=== PATIENT | male | born 1950 | race Caucasian/White ===

== ENCOUNTER 2016-09-20 05:43 | Inpatient (IN) | payer BC, OTHER ==
[2016-09-04 14:03] LABS: % IMMATURE GRANULYOCYTES 0.4 % (0.0-1.1); ABSOLUTE IMMATURE GRANULOCYTES 0.04 10^3/uL (0.00-0.10); ADD DIFF? NO; ADD MORPH? NO; ADD SCAN? NO; ATYPICAL LYMPHOCYTE FLAG 10 (0-99); FRAGMENT RBC FLAG 0 (0-99); HEMATOCRIT 42.4 % (40.0-51.0); HEMOGLOBIN 15.2 g/dL (13.7-17.5); LEFT SHIFT FLG 0 (0-99); LIPEMIA HEMOLYSIS FLAG 90 (0-99); MEAN CELL HEMOGLOBIN 33.7 pg (27.9-34.1); MEAN CELL HEMOGLOBIN CONCENTR. 35.8 g/dL (32.4-36.7); MEAN PLATELET VOLUME 9.9 fL (8.7-11.7); PLATELET CLUMPS FLAG 0 (0-99); PLATELET COUNT 287 10^3/uL (150-400); RED BLOOD CELL COUNT 4.51 10^6/uL (4.40-6.38); RED CELL DISTRIBUTION WIDTH 12.3 % (11.5-15.2)
[2016-09-04 14:26] LABS: ANION GAP 12 mEq/L (8-16); CALCIUM 9.3 mg/dL (8.5-10.4); CARBON DIOXIDE 25 mEq/l (22-31); CHLORIDE 106 mEq/L (97-110); CREATININE 1.2 mg/dL (0.7-1.3); GLOMERULAR FILTRATION RATE > 60; GLUCOSE 104 mg/dL (70-100); POTASSIUM 3.8 mEq/L (3.5-5.2); SODIUM 143 mEq/L (134-144)
[2016-09-20] MEDS ORDERED: LR 1,000 ML IV ONE (06:18)
[2016-09-20] MEDS ORDERED: LIDOCAINE 1% 5 ML SDV ID PRN (06:18)
[2016-09-20] MEDS ORDERED: ceFAZolin 2 GM/DEXTROSE 100 ML IV ONE (06:30)
[2016-09-20] MEDS ORDERED: BUPIVACAINE/EPI 0.25% 30 ML SDV ONE (06:40)
[2016-09-20] MEDS ORDERED: THROMBIN (RECOMBINANT) 20,000 UNIT VIAL TP ONE (06:40)
[2016-09-20] MEDS ORDERED: BACITRACIN 50,000 UNITS/10 ML SYR IRR ONE (06:40)
[2016-09-20] MEDS ORDERED: ONDANSETRON 4 MG/2 ML VIAL IVP PRN (06:56)
[2016-09-20] MEDS ORDERED: DIAZEPAM 10 MG/2 ML SYR IVP PRN (06:56)
[2016-09-20] MEDS ORDERED: [UNRECOGNIZED DRUG - OTHER] TP PRN (06:56)
[2016-09-20] MEDS ORDERED: HYDROmorphONE/DILAUDID 6 MG/30 ML PCA IV PRN (06:56)
[2016-09-20] MEDS ORDERED: LACTULOSE 20 GM/30 ML UDCUP PO PRN (06:56)
[2016-09-20] MEDS ORDERED: MAGNESIUM HYDROXIDE 30 ML UDCUP PO PRN (06:56)
[2016-09-20] MEDS ORDERED: TEMAZEPAM 15 MG CAP PO PRN (06:56)
[2016-09-20] MEDS ORDERED: HYDROmorphONE/DILAUDID 1 MG/ML SYR IVP PRN (06:56)
[2016-09-20] MEDS ORDERED: diphenhydrAMINE 25 MG CAP PO PRN (06:56)
[2016-09-20] MEDS ORDERED: NALOXONE HCL 0.4 MG/ML INJ IVP PRN (06:56)
[2016-09-20] MEDS ORDERED: BISACODYL 10 MG SUPP PR PRN (06:56)
[2016-09-20] MEDS ORDERED: CEFUROXIME 1,500 MG in NS 50 ML IV ONE (07:00)
[2016-09-20] MEDS ORDERED: MIDAZOLAM 2 MG/2 ML VIAL ONE (07:22)
[2016-09-20] MEDS ORDERED: REMIFENTANIL HCL 1 MG VIAL ONE ×2 (07:28→09:45)
[2016-09-20] MEDS ORDERED: fentaNYL 100 MCG/2 ML INJ ONE ×3 (07:29→13:13)
[2016-09-20] MEDS ORDERED: ONDANSETRON 4 MG/2 ML VIAL ONE ×2 (07:29→13:24)
[2016-09-20] MEDS ORDERED: LIDOCAINE 2% 100 MG/5 ML SYR IVP ONE (07:29)
[2016-09-20] MEDS ORDERED: DEXAMETHASONE 4 MG/ML VIAL ONE ×2 (07:29)
[2016-09-20] MEDS ORDERED: LIDOCAINE HCL 160 MG/4 ML LTA KIT TP ONE (07:29)
[2016-09-20] MEDS ORDERED: PROPOFOL/EMULSION 500 MG/50 ML BOTTLE IV ONE ×2 (07:29→09:45)
[2016-09-20] MEDS ORDERED: FAMOTIDINE 20 MG/NACL 50 ML IV SCH (09:00)
[2016-09-20] MEDS ORDERED: PHENYLEPHRINE HCL 100 MCG/ML SYR ONE (10:13)
[2016-09-20] MEDS ORDERED: epHEDrine SULFATE 10 MG/ML SYR ONE (10:13)
[2016-09-20] MEDS ORDERED: morphINE *ANESTHESIA ONLY* 10 MG/ML VIAL ONE (11:45)
[2016-09-20] MEDS ORDERED: DIAZEPAM 10 MG/2 ML SYR ONE (12:40)
[2016-09-20] MEDS ORDERED: HYDROmorphONE/DILAUDID 1 MG/ML SYR ONE (13:24)
--- NOTE | 2016-09-20 13:33 | SOAPPROG ---
[facility] Progress Note Assessment/Plan: Post Op Visit: S: Awake and alert, Pt with expected lower back pain O: AFVSS/PERRLA/EOMI CN 2-12 grossly intact +lt touch 5/5 BUE/BLE = CDI MONIKA in place A/P: 66 yo male that is s/p TLIF at L4/5 and L5/S1 -orders in place -call with any questions or concerns -take medications as directed -pt seen by Dr Caba as well 09/20/16 13:31 Objective: Laboratory Results 09/04/16 13:49 09/04/16 13:49 ICD10 Worksheet Patient Problems: Problems Problem Status Diagnosed Arthrodesis status Acute Lumbar radicular pain Acute Lumbar stenosis Acute - ICD10 Problem Qualifiers (1) Lumbar stenosis (2) Lumbar radicular pain (3) Arthrodesis status
--- NOTE | 2016-09-20 13:45 | GOP ---
[f rep st] OPERATIVE REPORT DATE OF OPERATION: 09/20/2016 SURGEON: Tiffanie Caba MD SUPERVISOR ELECTRIC: Parmjit Francisco PA-C PREOPERATIVE DIAGNOSIS: Lumbar spondylolisthesis L5-S1, lumbar spondylosis, lumbar degenerative disk disease, chronic right lumbosacral radiculopathy, right lateral recess stenosis L4-5, severe right f oraminal stenosis L5-S1. POSTOPERATIVE DIAGNOSIS: Lumbar spondylolisthesis L5-S1, lumbar spondylosis, lumbar degenerative dis k disease, chronic right lumbosacral radiculopathy, right lateral recess stenosis L4-5, severe right foraminal stenosis L5-S1. PROCEDURE PERFORMED: Right L4-5, L5-S1 hemilaminectomy with complete facetectomy and decompression o f the exiting L4 nerve roots and L5 nerve root L4-5, L5-S1, with a posterolateral and an intervertebr al arthrodesis at those levels (60636, [id number]), posterior segmental instrumentation L4, L5, S1 (04262) , same incision bone graft harvest, microscope, intraoperative frameless Stealth stereotaxy for spine , placement of expandable biomechanical intervertebral device at L4-5, L5-S1 without anchors (63015 x 2). FINDINGS: ESTIMATED BLOOD LOSS: 300 cc. INDICATIONS: The patient is a 66-year-old with a prior history of cervical surgery who had terrible right lumbosacral radiculopathy due principally to right foraminal stenosis at L5-S1, where there is a degenerative slip of L5-S1 and hypertrophy of the facet joint and the SAP of the sacrum, causing co mpression of the right L5 root. There is also right lateral recess stenosis at L4-5, and I suggested a 2-level instrumented fusion to decompress the right foramen. The risk of screw and hardware malpo sition, malfunction, nerve injury, spinal fluid leak, continued symptoms was discussed. He knew surg anushka may fail to alleviate the discomfort in his leg, but this gave him the best chance of relief. He accepted these risks. He did want to proceed. DESCRIPTION OF PROCEDURE: The patient was taken to the operating room, placed in supine position. G eneral anesthesia was begun. He was flipped prone onto the James table. Care was taken to pad all points of contact. His back was sterilely prepped and draped in the usual fashion. A localizing x- ray was taken. We made a 7 cm incision above the L4-5, L5-S1 interspaces. The subcutaneous tissue w as dissected using Bovie cautery down through the fascia, and a subperiosteal dissection was made alvin n the lamina of L4-5 and the sacrum. We removed the hypertrophic facets bilaterally at L4-5, L5-S1, placed a self-retaining retractor, and removed all the soft tissue of the bone L4-5, L5-S1. We decor ticated the transverse processes at L4, L5, S1. We tested Stealth reference, framing the L5 spinous process, performed an O-arm spin, and using frameless Stealth stereotaxy, we placed pedicle screws bi laterally at L4-5 in the sacrum. They were all in good position, and they all stimulated at acceptab le levels. We then took 60 mm rods, kept them with the preset lordosis, and put them down over the t ulips from L4 to S1. We distracted between L4, L5, S1. The rods were the right length. We final ti ghtened the cap screws according to company specification. There was good lumbar lordosis. We harve sted the L5 spinous process for autologous grafting purposes and the right hemilamina of L4 and the h emilamina of L5 for autologous grafting purposes. Under the microscope, we decompressed the right si de of the thecal sac at L4-5, L5-S1, and there was a large bony hypertrophy of the SEP of the sacrum compressing the L5 root in the neural foramen underneath the L5 pedicle. We completely removed this large piece of bone that was sitting against the L5 root, and nicely decompressed it. The L5 root wa s now decompressed at the L4-5 level, where there was lateral recess stenosis and all way down out in to its neural foramen. We decompressed the right S1 nerve root. We then incised the L5-S1 disk, rem tawanda the disk and the cartilaginous endplates. We incised the L4-5 disk, removed the disk, and the c artilaginous endplates. We then roughened the subchondral bone at L4-5, L5-S1 to create arthrodesis at those levels, and chose a 7 x 20 mm device for L5-S1 and a 9 x 20 mm device for L4-5. We inserted them under fluoroscopic guidance and expanded them according to company specification. Bony autogra ft and BMP had been placed in the interspace at both levels. We expanded them and x-rays demonstrate d good position of all the devices. We final tightened all the cap screws according to company speci fication, decorticated all the remaining posterolateral bone at L4-5, L5-S1, placed a subfascial drai n, and closed the incision in multiple layers using Vicryl sutures. A running PDS was placed in the skin itself. The patient was reversed from anesthesia, extubated, and transferred to recovery room i n stable condition. There were no complications. COMPLICATIONS: None. INSTRUMENTATION USED: [email or web address]tronic 4.75 Solera pedicle screws with Elevate cages. COMPLICATIONS: None. /[id number]/MODL
[2016-09-20] MEDS: NS W/ 20 KCl/L 1,000 ML IV SCH (14:44)
[2016-09-20] MEDS: amLODIPine BESYLATE 5 MG TAB PO SCH (15:33)
[2016-09-20] MEDS: LISINOPRIL 40 MG TAB PO SCH (15:33)
[2016-09-20] MEDS: HYDROCHLOROTHIAZIDE 25 MG TAB PO SCH (15:33)
[2016-09-20] MEDS: SENNOSIDES/DOCUSATE SODIUM TAB PO SCH ×2 (15:37→19:49)
[2016-09-20] MEDS: morphINE SR 15 MG TAB PO SCH ×2 (15:57→19:49)
[2016-09-20] MEDS: oxyCODONE IR 5 MG TAB PO PRN (16:58)
[2016-09-20] MEDS: METHOCARBAMOL 750 MG TAB PO PRN (16:58)
[2016-09-20] MEDS: DIAZEPAM 5 MG TAB PO PRN ×2 (16:58→23:58)
[2016-09-20] MEDS: ONDANSETRON DISINTEGRATING 4 MG TAB PO PRN ×2 (17:09→21:27)
--- NOTE | 2016-09-20 18:11 | DX ---
Intraoperative Fluoroscopy History: Lumbar fusion surgery Fluoroscopy dose = 10.89 mGy Findings : A single lateral spot film demonstrates a posterior fusion construct between L4 and S1. Al ignment is anatomic. There is a vacuum phenomenon in the severely narrowed L5-S1 disk space Impression: Excellent intraoperative alignment.
[2016-09-20] MEDS: FAMOTIDINE 20 MG TAB PO SCH (19:49)
[2016-09-21] MEDS: oxyCODONE IR 5 MG TAB PO PRN ×3 (04:36→11:37)
[2016-09-21] MEDS: ONDANSETRON DISINTEGRATING 4 MG TAB PO PRN ×4 (04:36→20:37)
[2016-09-21] MEDS: METHOCARBAMOL 750 MG TAB PO PRN ×2 (04:36→11:37)
[2016-09-21] MEDS: NS W/ 20 KCl/L 1,000 ML IV SCH (04:40)
[2016-09-21 05:00] LABS: % IMMATURE GRANULYOCYTES 0.5 % (0.0-1.1); ABSOLUTE IMMATURE GRANULOCYTES 0.07 10^3/uL (0.00-0.10); ADD DIFF? NO; ADD MORPH? NO; ADD SCAN? NO; ATYPICAL LYMPHOCYTE FLAG 10 (0-99); FRAGMENT RBC FLAG 0 (0-99); HEMATOCRIT 34.4 % (40.0-51.0); HEMOGLOBIN 11.7 g/dL (13.7-17.5); LEFT SHIFT FLG 0 (0-99); LIPEMIA HEMOLYSIS FLAG 90 (0-99); MEAN CELL HEMOGLOBIN 32.7 pg (27.9-34.1); MEAN CELL VOLUME 96.1 fL (81.5-99.8); PLATELET CLUMPS FLAG 0 (0-99); PLATELET COUNT 200 10^3/uL (150-400); RED BLOOD CELL COUNT 3.58 10^6/uL (4.40-6.38); RED CELL DISTRIBUTION WIDTH 12.2 % (11.5-15.2)
[2016-09-21 05:24] LABS: ANION GAP 9 mEq/L (8-16); CALCIUM 8.9 mg/dL (8.5-10.4); CARBON DIOXIDE 24 mEq/l (22-31); CHLORIDE 106 mEq/L (97-110); CREATININE 1.1 mg/dL (0.7-1.3); GLOMERULAR FILTRATION RATE > 60; GLUCOSE 127 mg/dL (70-100); POTASSIUM 4.6 mEq/L (3.5-5.2); SODIUM 139 mEq/L (134-144)
--- NOTE | 2016-09-21 07:36 | NEUSURGPN ---
[id number] pain improved. Has some arm numbness that is resolving from positioning during surgery. Denies fever, chills. O: AFVSS/PERRLA/EOMI CN 2-12 grossly intact +lt touch 5/5 BUE/BLE = CDI MONIKA in place A/P: 66 yo male that is s/p TLIF at L4/5 and L5/S1 -orders in place -call with any questions or concerns -take medications as directed -pt seen by Dr Caba as well Neurosurgery Physical Exam - Vitals, I&O, Labs I and O 09/20/16 09/21/16 09/22/16 05:59 05:59 05:59 Intake Total 3830 Output Total 1240 250 Balance 2590 -250 Weight 89 kg Intake: Oral (ml) 1000 IV Intake (ml) 1880 IV Infused (ml) 950 ceFAZolin 1 GM/DEXTROSE 50 50 ml @ 200 mls/hr IV Q8H [facility] Rx#:[id number] NS W/ 20 KCl/L 1,000 ml @ 900 75 mls/hr IV CONT [facility] Rx #:[id number] Output: Urine (ml) 775 250 Urinal 775 250 Wound Drainage (ml) 465 #1 Back 465 Other: Number of Voids Urinal 1 1 Bladder Scan Volume (ml) Urinal 309 Vital Signs Temp Pulse Resp BP Pulse Ox 36.9 C 79 16 107/71 98 09/21/16 04:00 09/21/16 04:00 09/21/16 04:00 09/21/16 04:00 09/21/16 04:00 Laboratory Results 09/21/16 04:31 09/21/16 04:31 ICD10 Worksheet Patient Problems: Problems Problem Status Diagnosed Arthrodesis status Acute Lumbar radicular pain Acute Lumbar stenosis Acute
[2016-09-21] MEDS: POLYETHYLENE GLYCOL 3350 17 GM PKT PO PRN (08:34)
[2016-09-21] MEDS: morphINE SR 15 MG TAB PO SCH ×2 (08:35→20:37)
[2016-09-21] MEDS: FAMOTIDINE 20 MG TAB PO SCH ×2 (08:35→20:35)
[2016-09-21] MEDS: SENNOSIDES/DOCUSATE SODIUM TAB PO SCH ×2 (08:36→20:35)
[2016-09-21] MEDS: amLODIPine BESYLATE 5 MG TAB PO SCH (08:36)
[2016-09-21] MEDS: LISINOPRIL 40 MG TAB PO SCH (08:36)
[2016-09-21] MEDS: HYDROCHLOROTHIAZIDE 25 MG TAB PO SCH (08:36)
--- NOTE | 2016-09-21 11:18 | DX ---
Lumbar Spine, 2 standing views History: Postop fusion followup Comparison: None Findings: A posterior fusion construct between L4 and S1 is present with bilateral transpedicular scr ews, vertical supporting rods and interbody disk space elevate spacers being in excellent position. . There is been a right laminotomy and facetectomy of L4 and a wide laminectomy at L5. A surgical drai n is present posteriorly. Alignment is anatomic. Impression: Excellent anatomic postoperative alignment.
[2016-09-21] MEDS: DIAZEPAM 5 MG TAB PO PRN (20:35)
[2016-09-21] MEDS: ACETAMINOPHEN 325 MG TAB PO PRN (20:35)
[2016-09-21] MEDS: ZOLPIDEM TARTRATE 5 MG TAB PO PRN (20:37)
[2016-09-22] MEDS: oxyCODONE IR 5 MG TAB PO PRN ×4 (03:47→23:19)
[2016-09-22] MEDS: METHOCARBAMOL 750 MG TAB PO PRN (03:49)
[2016-09-22] MEDS: PROMETHAZINE HCL 25 MG/ML INJ IVP PRN ×2 (03:49→10:26)
--- NOTE | 2016-09-22 07:24 | NEUSURGPN ---
Date of Surgery: 09/20/16 Post Op Day: 2 Assessment/Plan: Assessment: 66 yo male that is s/p TLIF at L4/5 and L5/S1 POD #2 Plan: -s/p TLIF L4/5 and L5/S1: pt states legs are much better, still has expected lower back pain -pain control: still working on pain control -no abd pain or BM. Passing gas -brace when out of bed -post op xrays look good -plan for dc tomorrow -warning signs given -call with any questions or concerns -take medications as directed -pt seen by Dr Caba as well 09/20/16 13:31 Subjective: Awake and alert. NAD. Eating/drinking and voiding. No f/c/n/v/d. Pt with continued expected back pain. Objective: AFVSS/PERRLA/EOMI CN 2-12 grossly intact +lt touch 5/5 BUE/BLE = CDI MONIKA removed intact Neuro Check Frequency: per routine Urinary Catheter in Place: No - Physician Discussed Patient with Dr.: Rosales Patient Seen by : Rosales Neurosurgery Physical Exam - Vitals, I&O, Labs I and O 09/21/16 09/22/16 09/23/16 05:59 05:59 05:59 Intake Total 3830 1250 Output Total 1240 1780 Balance 2590 -530 Weight 89 kg Intake: Oral (ml) 1000 1250 IV Intake (ml) 1880 IV Infused (ml) 950 ceFAZolin 1 GM/DEXTROSE 50 50 ml @ 200 mls/hr IV Q8H [facility] Rx#:[id number] NS W/ 20 KCl/L 1,000 ml @ 900 75 mls/hr IV CONT [facility] Rx #:[id number] Output: Urine (ml) 775 1600 Urinal 775 1600 Wound Drainage (ml) 465 180 #1 Back 465 180 Other: Number of Voids Urinal 1 1 Bladder Scan Volume (ml) Urinal 309 Vital Signs Temp Pulse Resp BP Pulse Ox 37.3 C 80 19 99/63 L 93 09/21/16 23:55 09/21/16 23:55 09/21/16 23:55 09/21/16 23:55 09/21/16 23:55 Laboratory Results 09/21/16 04:31 09/21/16 04:31 ICD10 Worksheet Patient Problems: Problems Problem Status Diagnosed Arthrodesis status Acute Lumbar radicular pain Acute Lumbar stenosis Acute - ICD10 Problem Qualifiers (1) Lumbar stenosis (2) Lumbar radicular pain (3) Arthrodesis status
[2016-09-22] MEDS: ACETAMINOPHEN 325 MG TAB PO PRN ×2 (10:07→18:52)
[2016-09-22] MEDS: LISINOPRIL 40 MG TAB PO SCH (10:08)
[2016-09-22] MEDS: SENNOSIDES/DOCUSATE SODIUM TAB PO SCH ×2 (10:08→20:50)
[2016-09-22] MEDS: HYDROCHLOROTHIAZIDE 25 MG TAB PO SCH (10:08)
[2016-09-22] MEDS: FAMOTIDINE 20 MG TAB PO SCH ×2 (10:09→20:48)
[2016-09-22] MEDS: amLODIPine BESYLATE 5 MG TAB PO SCH (10:09)
[2016-09-22] MEDS: morphINE SR 15 MG TAB PO SCH ×2 (10:09→20:49)
[2016-09-22] MEDS: ZOLPIDEM TARTRATE 5 MG TAB PO PRN (20:50)
[2016-09-23] MEDS: oxyCODONE IR 5 MG TAB PO PRN ×4 (05:40→22:20)
--- NOTE | 2016-09-23 09:50 | DX ---
Portable Chest, 9:34 AM History: Fever cough, sweats Comparison: None Findings: Inspiratory phase is less than optimal. There is some vascular crowding at the left base. T here is no obvious infiltrate or consolidation. The costophrenic gutters are sharp. There is mild tor tuosity of the descending thoracic aorta. There is degenerative spurring in the lower thoracic spine. Orthopedic hardware overlies the low cervical spine where the patient has had a fusion surgery. Impression: Less than optimal inspiration. Possibly early atelectasis at the left base.
[2016-09-23] MEDS: SENNOSIDES/DOCUSATE SODIUM TAB PO SCH ×2 (10:10→19:37)
[2016-09-23] MEDS: LISINOPRIL 40 MG TAB PO SCH (10:10)
[2016-09-23] MEDS: ACETAMINOPHEN 325 MG TAB PO PRN (10:10)
[2016-09-23] MEDS: HYDROCHLOROTHIAZIDE 25 MG TAB PO SCH (10:11)
[2016-09-23] MEDS: morphINE SR 15 MG TAB PO SCH ×2 (10:11→19:38)
[2016-09-23] MEDS: FAMOTIDINE 20 MG TAB PO SCH ×2 (10:11→19:38)
[2016-09-23] MEDS: amLODIPine BESYLATE 5 MG TAB PO SCH (10:11)
[2016-09-23] MEDS: ENOXAPARIN 40 MG/0.4 ML SYR SC SCH (10:13)
[2016-09-23 10:17] LABS: % IMMATURE GRANULYOCYTES 0.4 % (0.0-1.1); ABSOLUTE IMMATURE GRANULOCYTES 0.06 10^3/uL (0.00-0.10); ADD DIFF? NO; ADD MORPH? NO; ADD SCAN? NO; ATYPICAL LYMPHOCYTE FLAG 20 (0-99); FRAGMENT RBC FLAG 0 (0-99); HEMATOCRIT 40.2 % (40.0-51.0); HEMOGLOBIN 13.6 g/dL (13.7-17.5); LEFT SHIFT FLG 0 (0-99); LIPEMIA HEMOLYSIS FLAG 90 (0-99); MEAN CELL HEMOGLOBIN 32.1 pg (27.9-34.1); MEAN CELL HEMOGLOBIN CONCENTR. 33.8 g/dL (32.4-36.7); MEAN CELL VOLUME 94.8 fL (81.5-99.8); MEAN PLATELET VOLUME 9.7 fL (8.7-11.7); PLATELET CLUMPS FLAG 0 (0-99); PLATELET COUNT 243 10^3/uL (150-400); RED BLOOD CELL COUNT 4.24 10^6/uL (4.40-6.38); RED CELL DISTRIBUTION WIDTH 11.9 % (11.5-15.2)
[2016-09-23] MEDS: POLYETHYLENE GLYCOL 3350 17 GM PKT PO PRN (10:45)
--- NOTE | 2016-09-23 10:45 | NEUSURGPN ---
Date of Surgery: 09/20/16 Post Op Day: 3 Assessment/Plan: 66 yo male s/p L4-S1 TLIF. Pain controlled and preop right leg paresthesias improving low grade temp and new cough started last night lungs clear per RN I.S. Started WBC 14.2 UA and CXR pending Subjective: sitting up on edge of bed, notes right thigh paresthesias improved Objective: Neuro: ambulatory HUNTLEY, sens +LT Incision:CDI, no drainage or redness or swelling Urinary Catheter in Place: No Neurosurgery Physical Exam - Vitals, I&O, Labs I and O 09/22/16 09/23/16 09/24/16 05:59 05:59 05:59 Intake Total 1250 150 Output Total 1780 Balance -530 150 Intake: Oral (ml) 1250 150 Output: Urine (ml) 1600 Urinal 1600 Wound Drainage (ml) 180 #1 Back 180 Other: Number of Voids Urinal 1 Vital Signs Temp Pulse Resp BP Pulse Ox 37.8 C 94 18 110/71 96 09/23/16 07:56 09/23/16 07:56 09/23/16 07:56 09/23/16 10:11 09/23/16 07:56 Laboratory Results 09/23/16 10:00 09/21/16 04:31 ICD10 Worksheet Patient Problems: Problems Problem Status Diagnosed Arthrodesis status Acute Lumbar radicular pain Acute Lumbar stenosis Acute
[2016-09-23] MEDS: POLYETHYLENE GLYCOL 3350 17 GM PKT PO SCH ×2 (15:08→19:39)
[2016-09-23 17:09] LABS: COLOR YELLOW; LEUKOCYTE ESTERASE,URINE NEGATIVE (NEGATIVE); NITRITE,URINE NEGATIVE (NEGATIVE)
[2016-09-23 19:36] VITALS: RESP 16
[2016-09-23] MEDS: DIAZEPAM 5 MG TAB PO PRN (19:38)
[2016-09-23] MEDS: ZOLPIDEM TARTRATE 5 MG TAB PO PRN (21:20)
[2016-09-23] MEDS: METHOCARBAMOL 750 MG TAB PO PRN (22:20)
[2016-09-24] MEDS: oxyCODONE IR 5 MG TAB PO PRN ×2 (06:49→14:12)
[2016-09-24] MEDS: ACETAMINOPHEN 325 MG TAB PO PRN ×2 (08:07→11:33)
[2016-09-24 08:21] VITALS: BP 109/74; PULSE 102; O2SAT 92
[2016-09-24] MEDS: amLODIPine BESYLATE 5 MG TAB PO SCH (09:14)
[2016-09-24] MEDS: SENNOSIDES/DOCUSATE SODIUM TAB PO SCH (09:14)
[2016-09-24] MEDS: FAMOTIDINE 20 MG TAB PO SCH (09:14)
[2016-09-24] MEDS: METHOCARBAMOL 750 MG TAB PO PRN (09:15)
[2016-09-24] MEDS: HYDROCHLOROTHIAZIDE 25 MG TAB PO SCH (09:15)
[2016-09-24] MEDS: LISINOPRIL 40 MG TAB PO SCH (09:15)
[2016-09-24] MEDS: POLYETHYLENE GLYCOL 3350 17 GM PKT PO SCH (10:53)
[2016-09-24] MEDS: morphINE SR 15 MG TAB PO SCH (11:33)
[2016-09-24] MEDS: ENOXAPARIN 40 MG/0.4 ML SYR SC SCH ×2 (12:16→14:13)
--- NOTE | 2016-09-24 12:20 | NEUSURGPN ---
Date of Surgery: 09/20/16 Post Op Day: 4 Assessment/Plan: 66 yo male s/p L4-S1 TLIF. Pain controlled leg pain resolved afebrile but feeling chilled after his shower Does not feel ill cough improved cxr showed only possible early atelectasis at left lung base U/A negative DC Home today with encouraged use of IS at home Subjective: lying in bed after shower feeling a little chilled but otherwise doing great. Cough improved no new weakness, tingling or pain Objective: NEURO: HUNTLEY, sens +LT ambulatory Incision: CDI no drain post op xrays show good position of hardware L4-S1 Urinary Catheter in Place: No Neurosurgery Physical Exam - Vitals, I&O, Labs I and O 09/23/16 09/24/16 09/25/16 05:59 05:59 05:59 Intake Total 150 550 Output Total 350 Balance 150 200 Intake: Oral (ml) 150 550 Output: Urine (ml) 350 Urinal 350 Other: Intake Quantity Yes Sufficient Number of Voids Urinal 1 Toilet 1 Number of Stools Toilet 1 Vital Signs Temp Pulse Resp BP Pulse Ox 37.6 C 102 H 16 109/74 92 09/24/16 08:00 09/24/16 08:00 09/24/16 08:00 09/24/16 09:15 09/24/16 08:00 Laboratory Results 09/23/16 10:00 09/21/16 04:31 ICD10 Worksheet Patient Problems: Problems Problem Status Diagnosed Arthrodesis status Acute Lumbar radicular pain Acute Lumbar stenosis Acute
[2016-09-24 12:56] VITALS: TEMP 100.2
[2016-09-24] MEDS: ONDANSETRON DISINTEGRATING 4 MG TAB PO PRN (13:20)
== END 2016-09-24 14:44 | disposition home or self-care (01) | DRG 460 ==
LOC: F3N 05:43
PROVIDERS: ADMIT Neurological Surgery; ATTEND Neurological Surgery
PROC: 00NY0ZZ Release Lumbar Spinal Cord, Open Approach (ICD-10-PCS; principal; 2016-09-20 07:30)
PROC: 3E0U0GB Introduction of Recombinant Bone Morphogenetic Protein into Joints, Open Approach (ICD-10-PCS; principal; 2016-09-20 07:30)
PROC: 0SG00AJ Fusion of Lumbar Vertebral Joint with Interbody Fusion Device, Posterior Approach, Anterior Column, Open Approach (ICD-10-PCS; principal; 2016-09-20 07:30)
PROC: 0SG0071 Fusion of Lumbar Vertebral Joint with Autologous Tissue Substitute, Posterior Approach, Posterior Column, Open Approach (ICD-10-PCS; principal; 2016-09-20 07:30)
PROC: 0SG30AJ Fusion of Lumbosacral Joint with Interbody Fusion Device, Posterior Approach, Anterior Column, Open Approach (ICD-10-PCS; principal; 2016-09-20 07:30)
PROC: 0SB40ZZ Excision of Lumbosacral Disc, Open Approach (ICD-10-PCS; principal; 2016-09-20 07:30)
PROC: 0SB20ZZ Excision of Lumbar Vertebral Disc, Open Approach (ICD-10-PCS; principal; 2016-09-20 07:30)
PROC: 0SG3071 Fusion of Lumbosacral Joint with Autologous Tissue Substitute, Posterior Approach, Posterior Column, Open Approach (ICD-10-PCS; principal; 2016-09-20 07:30)
DX: M43.17 Spondylolisthesis, lumbosacral region (principal); M51.17 Intervertebral disc disorders with radiculopathy, lumbosacral region; I10 Essential (primary) hypertension
CPT/HCPCS: 97116-GP; 97161-GP; 97165-GO; 97530-GO; 97535-GO; C1713; G8978-GP-CJ; G8979-GP-CI; G8980-GP-CI; G8987-GO-CK; G8988-GO-CI; J0690; J0697; J1100; J1170; J1650; J2001; J2250; J2370; J2405; J2550; J2704; J3010